=== PATIENT | male | born 1970 | race African-American/Black ===

== ENCOUNTER 2022-10-17 20:25 | Emergency (ER) | payer BC ==
[~2022-10-17] VITALS: Ht 180.3 cm; Wt 97.5 kg
[2022-10-17] MEDS ORDERED: KETOROLAC TROMETHAMINE 30 MG/ML VIAL IV STA (20:28)
[2022-10-17] MEDS ORDERED: ASPIRIN 81 MG CHEW TAB PO ONE (20:30)
[2022-10-17 20:59] LABS: BASOPHILS # (AUTO) 0.1 (0.0-0.1); BASOPHILS % 1.1 % (0.0-1.0); EOSINOPHILS # (AUTO) 0.3 (0.0-0.4); EOSINOPHILS % 4.6 % (0.0-6.0); HEMATOCRIT 39.4 % (38.2-49.6); HEMOGLOBIN 13.1 g/dL (14.0-18.0); LYMPHOCYTES # (AUTO) 3.1 (1.0-3.2); LYMPHOCYTES % 53.5 % (18.0-39.1); MEAN CORPUSCULAR HEMOGLOBIN 30.3 pg (28-32); MEAN CORPUSCULAR HGB CONC 33.2 g/dL (31-35); MONOCYTES # (AUTO) 0.4 (0.2-0.8); MONOCYTES % 7.2 % (4.4-11.3); NEUTROPHILS # (AUTO) 1.9 (2.1-6.9); NEUTROPHILS % 32.9 % (38.7-80.0); PLATELET COUNT 267 x10e3/uL (140-360); RED BLOOD COUNT 4.33 x10e6/uL (4.3-5.7); RED CELL DISTRIBUTION WIDTH 13.6 % (11.7-14.4)
[2022-10-17 21:12] LABS: ALANINE AMINOTRANSFERASE 26 IU/L (0-55); ALBUMIN 4.1 g/dL (3.5-5.0); ALBUMIN/GLOBULIN RATIO 1.1 (0.8-2.0); ALKALINE PHOSPHATASE 44 IU/L (40-150); ANION GAP 12.4 mmol/L (8-16); BLOOD UREA NITROGEN 16 mg/dL (7-26); BUN/CREATININE RATIO 13 (6-25); CALCIUM 9.5 mg/dL (8.4-10.2); CARBON DIOXIDE 24 mmol/L (22-29); CHLORIDE 109 mmol/L (98-107); CREATINE KINASE 170 IU/L (30-200); CREATININE, SERUM 1.23 mg/dL (0.72-1.25); GLUCOSE 117 mg/dL (74-118); POTASSIUM 4.4 mmol/L (3.5-5.1); SODIUM 141 mmol/L (136-145)
[2022-10-17] MEDS ORDERED: IOPAMIDOL 370 MG/ML 100 ML INFUS..BTL INJ ONE (21:46)
[2022-10-17 22:30] VITALS: O2SAT 100
== END 2022-10-17 22:30 | disposition home or self-care (01) ==
LOC: ER 20:50
DX: R07.9 Chest pain, unspecified (principal); Q25.79 Other congenital malformations of pulmonary artery; Z85.850 Personal history of malignant neoplasm of thyroid
CPT/HCPCS: 36415; 71260; 80053; 82550; 82553; 83690; 83880; 84484; 85025; 93005; 99284; J1885; Q9967